=== PATIENT | female | born 1990 | race Caucasian/White ===

== ENCOUNTER 2025-06-30 05:12 | Inpatient (IN) | payer SELFPAY ==
[2025-06-30] MEDS ORDERED: Sodium Chloride 0.9% 10 ML Syringe FLUSH PRN (05:17)
[2025-06-30] MEDS ORDERED: Carboprost Tromethamine 250 MCG/1 mL Vial IM PRN (05:17)
[2025-06-30] MEDS ORDERED: Water For Irrigation,Sterile 1,000 ML Container IRR PRN (05:17)
[2025-06-30] MEDS ORDERED: Ondansetron 4 MG/2 ML SDV IVPUSH PRN (05:17)
[2025-06-30] MEDS ORDERED: Nalbuphine 10 MG/1 ML Vial IVPUSH PRN (05:17)
[2025-06-30] MEDS ORDERED: Terbutaline 1 MG/ML SDV SUBCUT PRN (05:17)
[2025-06-30] MEDS ORDERED: Sodium Chloride 0.9% 2.5 ML Syringe FLUSH PRN (05:17)
[2025-06-30 06:10] LABS: MEAN PLATELET VOLUME 11.1 fL (9.4-12.3); NRBC ABSOLUTE 0.00 K/uL (0.00-0.02); NRBC PERCENT 0.0 /100WBC (0.0-0.2); PLATELET COUNT,PLT 166 K/uL (150-400); RED BLOOD CELL COUNT 3.75 M/uL (4.10-5.30); WHITE BLOOD CELL COUNT,WBC 5.73 K/uL (3.9-11.3)
[2025-06-30] MEDS: Lactated Ringers 1,000 ML IV SCH (06:17)
[2025-06-30] MEDS: Oxytocin/0.9 % Sodium Chloride 30 UNIT/500 ML BAG IV SCH ×2 (06:18→12:23)
[2025-06-30] MEDS ORDERED: ePHEDrine 50 MG/ML SDV IVPUSH PRN (06:24)
[2025-06-30] MEDS ORDERED: dexmedeTOMIDine HCl 200 MCG/2 ML SDV EPIDUR SCH (06:30)
[2025-06-30] MEDS: Ropivacaine HCl/PF 400 MG in Premix Bag 1 BAG EPIDUR SCH (10:30)
[2025-06-30] MEDS: Witch Hazel Medicated Pads 40/Jar TOP PRN (14:27)
[2025-06-30] MEDS: Lanolin 100% Cream 7 GM Tube TOP PRN (14:27)
[2025-06-30] MEDS: Benzocaine/Menthol 20%-0.5% Spray 78 GM Cannister TOP PRN (14:27)
[2025-07-02] MEDS ORDERED: Prenatal Multivitamin with Calcium/Folic Acid/Iron Tab PO SCH (09:00)
== END 2025-07-01 17:50 | disposition home or self-care (01) | DRG 807 ==
LOC: MW.OB 05:12 → OBSVTOIN 12:52 → MW.OB 12:52
PROVIDERS: ADMIT Obstetrics & Gynecology Gynecology; ATTEND Obstetrics & Gynecology
PROC: 10E0XZZ Delivery of Products of Conception, External Approach (ICD-10-PCS; principal; 2025-06-30)
PROC: 0KQM0ZZ Repair Perineum Muscle, Open Approach (ICD-10-PCS; 2025-06-30)
PROC: 3E0R3BZ Introduction of Anesthetic Agent into Spinal Canal, Percutaneous Approach (ICD-10-PCS; 2025-06-30)
PROC: 10907ZC Drainage of Amniotic Fluid, Therapeutic from Products of Conception, Via Natural or Artificial Opening (ICD-10-PCS; 2025-06-30)
PROC: 3E033VJ Introduction of Other Hormone into Peripheral Vein, Percutaneous Approach (ICD-10-PCS; 2025-06-30)
DX: O48.0 Post-term pregnancy (principal); Z37.0 Single live birth; O99.02 Anemia complicating childbirth; Z3A.41 41 weeks gestation of pregnancy; Z79.899 Other long term (current) drug therapy; O77.0 Labor and delivery complicated by meconium in amniotic fluid; O70.1 Second degree perineal laceration during delivery; O69.1XX0 Labor and delivery complicated by cord around neck, with compression, not applicable or unspecified
CPT/HCPCS: 01967; 36415; 51702; 59409; 85014; 85018; 85027; 86592; 86850; 86900; 86901; A9270-GY; J2371; J2590; J2795; J7120